=== PATIENT | male | born 1985 | race Caucasian/White ===

== ENCOUNTER → 2017-07-29 | Outpatient (CLI) | payer OTHER ==
[~2017-07-29] MED LIST: ACET500T68 PO; DABI150C3 PO; LORA-802 PO; MULT-1335 PO; OMEP-125 PO; VITA0.4T11 PO
--- NOTE | 2017-07-29 11:41 | RADIOLOGY IMAGING REPORT ---
FACILITY: [facility] PATIENT NAME: Karri Navarro : 1985 MR: [id number] V: [id number] EXAM DATE: ORDERING PHYSICIAN: HENRY HERMAN TECHNOLOGIST: Location: [facility] - [place] Patient: Karri Navarro : 1985 Visit/Account:[id number] Date of Sevice: 07/29/2017 THYROID HISTORY: Hypothyroidism COMPARISON: FINDINGS: SIZE: Right lobe: 5.4 x 2.1 x 1.5 cm Left lobe: 4.7 x 1.3 x 1.5 cm Isthmus: 3 mm PARENCHYMA: Heterogeneous bilaterally NODULES: Right lobe: * There is an 8 mm hypoechoic nodule lateral aspect right lobe Left lobe: * None discrete. Isthmus: * None discrete. VASCULARITY: Within normal limits. ADDITIONAL FINDINGS: None. IMPRESSION: The thyroid gland appears heterogeneous bilaterally. There is an 8 mm hypoechoic nodule lateral aspect of the right lobe REFERENCE: 2015 [place] [employer] Management Guidelines for Adult Patients with Thyroid Nodules and D ifferentiated Thyroid Cancer: The [place] [employer] Guidelines Task Force on Thyroid Nodul es and Differentiated Thyroid Cancer. SONOGRAPHIC PATTERNS: * Benign: Purely cystic nodules (no solid component); estimated risk of malignancy <1 percent; no bi opsy recommended. * Very Low Suspicion: Spongiform or partially cystic nodules without any of the sonographic features described in low, intermediate, or high suspicion patterns; estimated risk of malignancy <3 percent; consider FNA at > 2 cm (Observation without FNA is also a reasonable option). * Low Suspicion: Isoechoic or hyperechoic solid nodule, or partially cystic nodule with eccentric so lid areas, without microcalcification, irregular margin or ETE (extra-thyroidal extension), or taller than wide shape; estimated risk of malignancy 5-10 percent; recommend FNA at >1.5 cm. * Intermediate Suspicion: Hypoechoic solid nodule with smooth margins without microcalcifications, E TE (extra-thyroidal extension), or taller than wide shape; estimated risk of malignancy 10-20 percent ; recommend FNA at > 1 cm. * High Suspicion: Solid hypoechoic nodule or solid hypoechoic component of a partially cystic nodule with one or more of the following features: irregular margins (infiltrative, microlobulated), microc alcifications, taller than wide shape, rim calcifications with small extrusive soft tissue component, evidence of ETE (extra-thyroidal extension); estimated risk of malignancy >70-90 percent; recommend FNA at > 1 cm. NOTES: * Although a sonographically suspicious subcentimeter thyroid nodule without evidence of extrathyroi torres extension or sonographically suspicious lymph nodes may be observed with close sonographic follow -up rather than pursuing immediate FNA, patient age and preference may modify decision-making. A > 50% interval increase in nodule volume and/or development of new suspicious sonographic features are felt to be a valid reasons for potential re-aspiration of a nodule previously shown to have benig n FNA cytology. Report Dictated By: Alice Swift MD at 07/29/2017 10:58 AM Report E-Signed By: Alice Swift MD at 07/29/2017 11:37 AM WSN:[email or web address]
== END ==
LOC: US 01:00
PROVIDERS: ATTEND Family Medicine
DX: E04.9 Nontoxic goiter, unspecified (principal)
CPT/HCPCS: 76536